=== PATIENT | male | born 1950 | race Caucasian/White ===

== ENCOUNTER 2017-01-31 11:48 | Emergency (ER) | payer OTHER ==
[~2017-01-31] VITALS: Ht 180.3 cm; Wt 100.0 kg
[2017-01-31 11:51] VITALS: BP 165/86; PULSE 75; RESP 18; O2SAT 97
--- NOTE | 2017-01-31 12:03 | ED.REPORT ---
HPI-Extremity Problem Lower Date of Service January 31, 2017 ED Provider: Piero Hyatt DO Pt is a 66 year old male with a hx of high cholesterol, HTN, presenting to the ED complaining of left lower leg pain, swelling and bruising in his calf and left foot. Denies fever, chills, or any other symptoms at this time. He reports that he kicked a metal post 6 days ago and has had pain ever since. Pt has no problems with ambulation. Pt was sent from for an ultrasound. Nursing Notes Stated Complaint: LEFT LEG THROBBING Chief Complaint: Extremity Trauma Nursing Notes Reviewed: Yes Allergies: Coded Allergies: No Known Allergies (Unverified , 05/22/16) Scheduled Atorvastatin (Lipitor) 20 Mg Tablet 20 MG PO DAILY Bupropion ER (Wellbutrin SR) 150 Mg Tablet.er 150 MG PO BID Cilostazol (Cilostazol) 50 Mg Tablet 50 MG PO DAILY Doxycycline Hyclate (Doxycycline Hyclate) 100 Mg Capsule 100 MG PO DAILY Lisinopril / HCTZ 10-12.5 mg (Lisinopril / HCTZ 10-12.5 mg) 1 Each Tablet 1 EACH PO DAILY Metronidazole (Metronidazole Cream) 45 Gm Cream..g. 1 APPLIC TOP BID Omeprazole (Omeprazole) 20 Mg Tablet.dr 20 MG PO DAILY Sulfacetamide Sodium (Sodium Sulfacetamide) 10 % Clnsr.gel 1 TP DAILY General Time Seen by MD: 11:58 Chief Complaint Leg injury left Hx Obtained From: Patient Arrived By: Walk-in Onset Occurred: 6 days ago Symptom Duration: Since onset Caused by: Kicked Location: : Leg left Severity: Current: Moderate Severity: Maximum: Moderate Recent Healthcare: No recent doctor visit, No recent hospitalization Similar Sx Previous: No Past Medical History Past Medical History hx of Hepatitis C Reports: GERD, Hyperlipidemia, Hypertension Past Surgical History Cataract repair Smoking History Never Smoker Social History Alcohol Use: Denies alcohol use Drug Use: THC Ambulatory Status Independent Review of Systems Constitutional: Denies: Chills, Fever Musculoskeletal: Reports: Extremity pain, Extremity swelling Skin: Reports Bruising, Reports Swelling Complete sys rev & neg: except as marked. Physical Exam Initial Vital Signs Vital Signs (First) Date Time Temp Pulse Resp B/P Pulse Ox O2 Delivery O2 Flow Rate FiO2 01/31/17 11:51 35.9 75 18 165/86 97 Room Air Initial VS: Reviewed General/Constitutional: Well-developed, Well-nourished Head / Eyes: Atraumatic, Normocephalic, PERRL ENT: Mucous membranes moist, Conjunctiva normal, No scleral icterus Respiratory: Breath sounds normal, Clear to auscultation, No respiratory distress Cardiovascular: Regular rate & rhythm, Heart sounds normal, Intact distal pulses Abdomen / GI: Soft, Non-tender, No guarding, No rebound, No distention Skin: Warm, Dry, No cyanosis Neurologic: Alert, Oriented, Nonfocal Psychiatric: Mood/affect normal, Behavior normal, Normal thought content Lower Extremity / Pelvis / MS: No deformity, Neurologic intact, Vascular intact Left Leg / Calf: Positive: Swelling present... Left anterior tibial bruise with small 1 cm hematoma. Mild surrounding warmth and erythema 4cm. Ecchymosis left heel. 1+ left LE edema compared to other side. Interpretation & Diagnostics US Soft Tissue/Musculoskeletal US VEINOUS LEG DUPLEX: IMPRESSION: 1. No evidence of deep vein thrombosis involving the left lower extremity. 2. Complex fluid collection in the medial left lower leg in region of a superficial wound suspicious for abscess versus hematoma. Dictated by: Michela Mcgowan MD, PhD on 01/31/2017 at 13:49 Exam Performed by: Radiologist Exam Interpreted by: Radiologist Re-Eval/Medical Decision Med Decision/Clinical Course Clinically this patient has a hematoma around his left lower extremity, not warm to touch and minimally tender he has not had fevers or chills, I do not see an indication for intervention at this point. Additionally there is no evidence of DVT. He will be discharged. Strict return and follow-up precautions are given. Re-Evaluation/Progress : Time of Eval: 13:25 Patient Status: Condition improved Re-Evaluation/Progress Note: Discussed plan for discharge. Pt understands and agrees with plan. Counseled Regarding: Diagnosis, Lab results, Need for follow-up, When/why to return to ED Discharge & Departure Impression: Primary Impression: Contusion of leg, left Encounter type: initial encounter Qualified Code: S80.12XA - Contusion of left lower leg, initial encounter Disposition: Home Discharge Condition All VS Reviewed: Yes Condition: Improved Additional Instructions: There is no evidence of a blood clot. Overall I think that your findings are most consistent with posttraumatic changes and a hematoma. You can apply ice and heat to the area as well as using Tylenol. Follow-up with your regular doctor. Return to the ER to rule out significant pain, high fever, signs of infection such as drainage or more rapid progression of the redness, or any other concerns. Referrals: Elisabeth Patrick MD (PCP) Scribe Attestation Portions of this note were transcribed by Lashawn Dobson. I, Dr. Hyatt personally performed the history, physical exam and medical decision-making; I reviewed and confirmed the accuracy of the information in the transcribed note. Signed by: Reggie Taylor, 01/31/2017 at 1355. copies to: Elisabeth Patrick MD, Timothy Rowena [place] January 31, 2017 12:03 LASHAWN DOBSON January 31, 2017 12:09
[2017-01-31] MEDS ORDERED: BUPR150T8 PO (12:30)
[2017-01-31] MEDS ORDERED: [UNRECOGNIZED DRUG - CODE] TP (12:30)
[2017-01-31] MEDS ORDERED: LISI1TAB7 PO (12:30)
[2017-01-31] MEDS ORDERED: DOXY100C2 PO (12:30)
[2017-01-31] MEDS ORDERED: ATOR20TA PO (12:30)
[2017-01-31] MEDS ORDERED: METR45CR TOP (12:30)
[2017-01-31] MEDS ORDERED: OMEP20TA86 PO (12:30)
[2017-01-31] MEDS ORDERED: CILO50TA PO (12:30)
[2017-01-31 13:46] VITALS: BP 168/73; PULSE 76; RESP 16; O2SAT 98
--- NOTE | 2017-01-31 13:51 | DRSVH ---
PROCEDURE: US VEINOUS LEG DUPLEX UNILATERAL, LEFT INDICATIONS: lle edema TECHNIQUE: Real-time imaging, as well as color and pulse Doppler interrogation, were performed of the lower extr emity deep veins from the inguinal ligament to the popliteal fossa. COMPARISON: None. FINDINGS: The deep veins are normally compressible, and free of intraluminal thrombus. Color and pu lse Doppler demonstrate normal phasic intraluminal flow. There is normal augmentation response to di stal compression maneuver. Complex fluid collections noted in the medial aspect of the left lower leg in the region of a superficial wound suspicious for hematoma or abscess. IMPRESSION: 1. No evidence of deep vein thrombosis involving the left lower extremity. 2. Complex fluid collection in the medial left lower leg in region of a superficial wound suspicious for abscess versus hematoma. Dictated by: Michela Mcgowan MD, PhD on 01/31/2017 at 13:49 Approved by: Michela Mcgowan MD, PhD on 01/31/2017 at 13:50
== END 2017-01-31 13:47 | disposition home or self-care (01) ==
LOC: SED 11:48
DX: S80.12XA Contusion of left lower leg, initial encounter (principal); W22.8XXA Striking against or struck by other objects, initial encounter; Y92.9 Unspecified place or not applicable; Y93.89 Activity, other specified; Y99.8 Other external cause status; E78.5 Hyperlipidemia, unspecified; I10 Essential (primary) hypertension; K21.9 Gastro-esophageal reflux disease without esophagitis; Z86.19 Personal history of other infectious and parasitic diseases

== ENCOUNTER 2017-02-09 10:43 | Emergency (ER) | payer OTHER ==
[~2017-02-09] VITALS: Ht 180.3 cm; Wt 100.0 kg
[~2017-02-09 10:43] MED LIST: ATOR20TA PO; BUPR150T8 PO; CILO50TA PO; DOXY100C2 PO; LISI1TAB7 PO; METR45CR TOP; OMEP20TA86 PO; [UNRECOGNIZED DRUG - CODE] TP
[2017-02-09 11:07] VITALS: BP 139/83; PULSE 86; RESP 16; O2SAT 97
--- NOTE | 2017-02-09 11:35 | ED.REPORT ---
HPI-Rash / Abscess Date of Service February 09, 2017 ED Provider: Timothy Charles PA-C Alex is a 66-year-old male with a history of hepatitis C and leg claudication presents with a chief complaint of left leg swelling. Patient was seen in this department approximately 10 days ago and diagnosed with a contusion. At that time ultrasound revealed no DVT and revealed a hematoma on the left anterior pizarro. Patient reports striking his chin against a metal fence post 2 days prior. Today the patient complains of increased swelling and pain in the left leg and foot as well as drainage from an open sore at the site of the previously diagnosed hematoma. He reports the swelling increased approximately 3 days ago and the sore appeared approximately one day ago. Reports that the pain is worst when he first stands on the affected limb after reclining for a period of time. Denies systemic symptoms such as fever, chills , malaise, palpitations, tachycardia, shortness of breath, sweating, abdominal pain, vomiting. Nursing Notes Stated Complaint: CHECK LEG Chief Complaint: Extremity Trauma Nursing Notes Reviewed: Yes Allergies: Coded Allergies: No Known Allergies (Unverified , 02/09/17) Scheduled Atorvastatin (Lipitor) 20 Mg Tablet 20 MG PO DAILY Bupropion ER (Wellbutrin SR) 150 Mg Tablet.er 150 MG PO BID Cephalexin (Keflex) 500 Mg Capsule 500 MG PO QID Cilostazol (Cilostazol) 50 Mg Tablet 50 MG PO DAILY Doxycycline Hyclate (Doxycycline Hyclate) 100 Mg Capsule 100 MG PO DAILY Lisinopril / HCTZ 10-12.5 mg (Lisinopril / HCTZ 10-12.5 mg) 1 Each Tablet 1 EACH PO DAILY Metronidazole (Metronidazole Cream) 45 Gm Cream..g. 1 APPLIC TOP BID Omeprazole (Omeprazole) 20 Mg Tablet.dr 20 MG PO DAILY Sulfacetamide Sodium (Sodium Sulfacetamide) 10 % Clnsr.gel 1 TP DAILY General Time Seen by MD: 11:12 Chief Complaint Tender/swollen area Past Medical History Past Medical History hx of Hepatitis C Reports: GERD, Hyperlipidemia, Hypertension Past Surgical History Cataract repair Smoking History Never Smoker Social History Alcohol Use: Denies alcohol use Drug Use: THC Ambulatory Status Independent Review of Systems Review of Systems Note: Negative unless stated otherwise in history of present illness Physical Exam General: Well appearing, well developed, well nourished, no acute distress. Head: Atraumatic, normocephalic. Eyes: No scleral icterus or injection. No discharge. Vision grossly intact. ENT: Voice clear, hearing grossly intact. Respiratory: No respiratory distress, no increased work of breathing. Speaks in complete sentences. Skin: Warm and dry. Neurological: Grossly nonfocal. Left leg: Nontender calf, notably larger than right. 1.5 cm shallow sore with slight serous drainage on the medial anterior left pizarro with surrounding erythema and tenderness. 2+ pitting edema in ankle and foot, 1+ pitting edema extending to mid pizarro. Minimal redness, heat. DP and PT pulses are not appreciated by palpation. Psychological: alert and oriented. Speech appropriate, linear and logical. Behavior appropriate. Initial Vital Signs Vital Signs (First) Date Time Temp Pulse Resp B/P Pulse Ox O2 Delivery O2 Flow Rate FiO2 02/09/17 11:07 36.1 86 16 139/83 97 Room Air Initial VS: Vital signs normal Interpretation & Diagnostics Lab Results Interpretation Result Diagram: 02/09/17 1135 Test 02/09/17 11:35 White Blood Count 9.0th/mm3 (3.8-10.1) Red Blood Count 4.32mil/mm3 (4.40-5.80) Hemoglobin 11.3g/dL (13.8-17.2) Hematocrit 36.0% (41.0-50.0) Mean Corpuscular Volume 83.3fL (81-100) Mean Corpuscular Hemoglobin 26.2pg (27.0-35.0) Mean Corpuscular Hemoglobin Concent 31.4% (32.0-37.0) Red Cell Distribution Width 15.2% (12.3-15.4) Platelet Count 265bil/L (150-400) Neutrophils (%) (Auto) 58.4% (40-74) Lymphocytes (%) (Auto) 27.4% (14-46) Monocytes (%) (Auto) 7.2% (4-12) Eosinophils (%) (Auto) 5.9% (0-5) Basophils (%) (Auto) 0.8% (0-3) Procedures Incision & Drainage Abscess Procedure Performed by: Allied health pract Consent / Setup / Site Prep: Informed consent provided, Consent from patient , Hand hygiene observed Location of Abscess: Left anterior pizarro. Skin Preparation Agent: Hibiclens - Chlorhexidine Local Anesthesia: Bupivacaine 0.5% (with epinephrine) Incised Abscess with Scalpel: #11 Pus Drained: Large, Bloody Irrigation: 50 cc Post-Procedure / Complications: Packing placed, Culture obtained, Gram stain ordered, Dressing applied, No complications, Condition improved, Tolerated procedure well, Patient stable Re-Eval/Medical Decision Med Decision/Clinical Course C6-year-old male with a history of hepatitis C and claudication presenting with left leg swelling. Present for approximately 2 weeks after striking his ligaments and status post. The systems department approximately 10 days ago. DVT suspected at that time, hematoma diagnosed by ultrasound. Patient reports increased swelling in the last several days, denies systemic symptoms. On physical examination there is significant edema in the left foot left calf is significantly larger than right. DP and PT pulses are not appreciated possibly due to significant edema but capillary refill remains brisk. Repeat ultrasound again is reassuring against DVT and indicate hematoma still present. CBC reveals a leukocytosis. The patient is afebrile Performed incision and drainage, releasing a significant amount of blood and clots. Irrigated with normal saline, applied packing and dressed with antibiotic ointment and gauze. I discussed this case with Dr. Galeano who met with and examine the patient. We do not feel that antibiotics are necessary at this time swelling as well explained by presence of hematoma. Provided a paper prescription for Keflex to be started if the patient's condition deteriorates. I feel he is competent to make these judgments. I can instructions, advised primary care follow-up as necessary, provided emergency return precautions. His understanding of and consent to plan. Discharge & Departure Impression: Primary Impression: Hematoma of left lower extremity Encounter type: subsequent encounter Qualified Code: S80.12XD - Contusion of left lower leg, subsequent encounter Disposition: Home Discharge Condition All VS Reviewed: Yes Condition: Stable Patient Instructions: Cellulitis (ED) Additional Instructions: Evaluation for left leg swelling in the emergency department whose history, physical, blood work and ultrasound, all of which are reassuring that this is unlikely to be caused by an immediately dangerous condition such as a blood clot in your leg. I believe you are stable and safe to be discharged. Swelling your leg appears to be caused by the hematoma that was diagnosed previously. We have drain this hematoma and You should start to see some improvement in the swelling in the next 2 or 3 days. I will give you a prescription for Keflex to be taken 4 times a day for 10 days. Do not fill this right away. Instead wait until Monday. If the swelling and pain is not improved by then, start taking this medication. The pain is best treated with 400 mg of ibuprofen (Advil, Motrin) every 6 hours , or 1000 mg of acetaminophen (Tylenol) every 6 hours. These drugs can be taken at the same time for more severe pain. Keep the wound covered and dry for the next 24 hours. After that you can remove the dressing, wash with soap and water, reapply antibiotic ointment and dressing. After 2 or 3 days you can remove the packing material. Continue to dress the wound with antibiotic ointment and gauze until it is healed. Be vigilant for signs of infection including increased redness, swelling, pain or the appearance of pus. This is an indication to start taking the Keflex. Follow-up with her primary care provider if you have any concerns about how this is healing. Return to emergency department for new or worsening symptoms including signs of infection, feeling ill, racing heart, sweating, fever. Referrals: Elisabeth Patrick MD (PCP) EDSupervising Provider for APC: Mariah Ashton MD Attending Statement Patient is seen and examined with Mr. Charles. Large hematoma drained from the anterior pizarro present for 2 weeks. Hematoma itself can certainly explain the erythema and edema but present. No white count and no fever not feeling ill. This point I do not think there is evidence for cellulitis and have recommended against antibiotics. However certainly would have a low threshold for starting. Recommended that a prescription for Keflex be sent home with the patient to start if he does develop signs or symptoms of antibiotics. Instructed to return to the emergency room should he have any wound breakdown concerns or increasing infection copies to: Elisabeth Patrick MD, Seth PA-C February 09, 2017 11:35 Mariah Ashton MD February 09, 2017 13:28
[2017-02-09 11:54] LABS: BASOPHILS % (AUTO) 0.8 % (0-3); EOSINOPHILS % (AUTO) 5.9 % (0-5); MONOCYTES % (AUTO) 7.2 % (4-12); Mean Corpuscular Hemoglobin 26.2 pg (27.0-35.0); Mean Corpuscular Volume 83.3 fL (81-100); NEUTROPHILS % (AUTO) 58.4 % (40-74); Platelet Count 265 bil/L (150-400)
[2017-02-09] MEDS ORDERED: CEPH-512 PO (13:17)
--- NOTE | 2017-02-09 13:30 | DRSVH ---
PROCEDURE: US VEINOUS LEG DUPLEX UNILATERAL, LEFT INDICATIONS: unilateral left leg swelling TECHNIQUE: Real-time imaging, as well as color and pulse Doppler interrogation, were performed of the lower extr emity deep veins from the inguinal ligament to the popliteal fossa. COMPARISON: [facility], US, US VENOUS LEG DPLX UNI LT, 01/31/2017, 12:53. FINDINGS: The deep veins are normally compressible, and free of intraluminal thrombus. Color and pu lse Doppler demonstrate normal phasic intraluminal flow. There is normal augmentation response to di stal compression maneuver. Complex fluid collections noted in the medial aspect of the left lower leg in the region of a superficial wound suspicious for hematoma or abscess. IMPRESSION: 1. No deep venous thrombosis identified within the left lower extremity. 2. Complex fluid collection redemonstrated within the medial left lower leg similar to prior exam. R ecommend clinical correlation and followup. Dictated by: Maurice KWOK Interpreted: Henry White MD on 02/09/2017 at 13:28 Transcribed by: LAUREN on 02/09/2017 at 13:30 Approved by: Ken White M.D. on 02/09/2017 at 13:46
== END 2017-02-09 13:29 | disposition home or self-care (01) ==
LOC: SED 10:43
DX: S80.12XA Contusion of left lower leg, initial encounter (principal); W22.8XXA Striking against or struck by other objects, initial encounter; Y93.89 Activity, other specified; Y92.9 Unspecified place or not applicable; Y99.8 Other external cause status; K21.9 Gastro-esophageal reflux disease without esophagitis; E78.5 Hyperlipidemia, unspecified; I10 Essential (primary) hypertension

== ENCOUNTER 2017-05-12 13:26 | Emergency (ER) | payer OTHER ==
[~2017-05-12] VITALS: Ht 180.3 cm; Wt 99.1 kg
[~2017-05-12 13:26] MED LIST changes: +CEPH-512 PO
[2017-05-12 13:32] VITALS: BP 143/91; PULSE 85; RESP 14; O2SAT 98
--- NOTE | 2017-05-12 14:22 | ED.REPORT ---
HPI-Extremity Problem Upper Date of Service May 12, 2017 ED Provider: Doc,Ed MD History of Present Illness: Fall on steps at home, landing on right hand, cut on themar eminance. Happened around 1230 today. primary care is jocelyn at [facility]. up to date on tdap. right hand dominant. retired. 12/09 Nursing Notes Stated Complaint: CUT ON RT HAND Chief Complaint: Extremity Trauma Nursing Notes Reviewed: Yes Allergies: Coded Allergies: No Known Allergies (Unverified , 02/09/17) Scheduled Atorvastatin (Lipitor) 20 Mg Tablet 20 MG PO DAILY Bupropion ER (Wellbutrin SR) 150 Mg Tablet.er 150 MG PO BID Cephalexin (Keflex) 500 Mg Capsule 500 MG PO QID Cilostazol (Cilostazol) 50 Mg Tablet 50 MG PO DAILY Doxycycline Hyclate (Doxycycline Hyclate) 100 Mg Capsule 100 MG PO DAILY Lisinopril / HCTZ 10-12.5 mg (Lisinopril / HCTZ 10-12.5 mg) 1 Each Tablet 1 EACH PO DAILY Metronidazole (Metronidazole Cream) 45 Gm Cream..g. 1 APPLIC TOP BID Omeprazole (Omeprazole) 20 Mg Tablet.dr 20 MG PO DAILY Sulfacetamide Sodium (Sodium Sulfacetamide) 10 % Clnsr.gel 1 TP DAILY General Time Seen by MD: 14:21 Chief Complaint Hand injury right, Other (right hand laceration) Hx Obtained From: Patient Onset Occurred: Just prior to arrival Past Medical History Past Medical History hx of Hepatitis C Reports: GERD, Hyperlipidemia, Hypertension, Denies: Asthma Past Surgical History Cataract repair both eyes Smoking History Former Smoker (quit 10 years ago 05/12/2017) Social History Alcohol Use: Denies alcohol use Drug Use: THC Occupation single, live alone with 2 dogs Ambulatory Status Independent Review of Systems Basic Review of Systems Eyes: Vision NL, No discharge : No dysuria, No frequency Psychiatric: Normal thought content Physical Exam Initial Vital Signs Vital Signs (First) Date Time Temp Pulse Resp B/P Pulse Ox O2 Delivery O2 Flow Rate FiO2 05/12/17 13:32 36.6 85 14 143/91 98 Room Air Initial VS: Reviewed, Vital signs normal General/Constitutional: Well-developed, Well-nourished Head / Eyes: Atraumatic, Normocephalic, PERRL ENT: Mucous membranes moist, Conjunctiva normal, No scleral icterus Neck: Supple, Non-tender, Full range of motion Respiratory: Breath sounds normal, Clear to auscultation, No respiratory distress Cardiovascular: Regular rate & rhythm, Heart sounds normal, Intact distal pulses Abdomen / GI: Soft, Non-tender, No guarding, No rebound, No distention Back: No CVA tenderness Lymphatic: No lymphadenopathy Lower Extremities: Vascular intact, Neuro intact, No swelling, No tenderness Skin: Warm, Dry, No cyanosis Neurologic: Alert, Oriented, Nonfocal Psychiatric: Mood/affect normal, Behavior normal, Normal thought content General/Constitutional: Awake, Alert, No acute distress, Well appearing, Well developed, Well hydrated, Well nourished, Cooperative Respiratory / Chest: Atraumatic, Breath sounds NL, Breath sounds = bilat, No respiratory distress, No rales, No rhonchi, No wheezing, No retractions, No stridor, No chest tenderness, No chest wall deformity, No crepitus Cardiovascular: Heart rate NL, Regular rhythm, Heart sounds NL, No gallop, No murmurs Upper Extremity / MS: Full range of motion, No swelling right arm has area of ecchymosis above elbow. No skin damage. Full range of motion of elow and hand and wrist right hand has 2 cm laceration in themar eminance. no active bleeding Head / Eyes: Atraumatic, Normocephalic, PERRL, EOMI ENT: Atraumatic, Airway patent, Mucous membranes moist, Pharynx NL Procedures Laceration Management Time: 14:30 Procedure Performed by: Allied health pract Consent / Setup / Site Prep: Informed consent provided, Consent from patient , Hand hygiene observed, Stand sterile technique Location of Wound: right themar eminance Wound Length: 2 cm Local Anesthesia: Lidocaine 1%, 4cc, 27g needle Digital Block: No Wound Preparation: Normal saline Irrigation: Copious Repair Skin: ___ O (5.), Nylon # Sutures - Skin: 7 Closure Layers: 1 Suture Technique: Simple Post-Procedure / Complications: Antibiotic oint applied, Dressing applied, No complications, Condition improved, Tolerated procedure well, Patient stable Re-Eval/Medical Decision Med Decision/Clinical Course 66 year old male presents for evualation and repair of hand laceration when he fell at home earlier today. Patient with full range of motion, no active bleeding. sensation intact distally cap refill less than 2 sec. No sign of compartment syndrome of hand fracture Discharge & Departure Impression: Primary Impression: Laceration Disposition: Home Patient Instructions: Contusion in Adults (ED), Laceration (ED) Additional Instructions: The laceration has been repaired with 7 sutures. You have a contusion by your elbow. Need to use ice to the site 15 minutes on and 15 minutes off for 4 to 5 days. Keep the dressing dry. Sutures out in 14 days here. Apply bacitracin to the hand wound daily. Make sure you are moving the arm and elbow also. Follow with Dr. Patrick as scheduled. Referrals: Elisabeth Patrick MD (PCP) EDSupervising Provider for APC: Luca Moser MD Attending Statement I saw the patient with the [facility]. I agree with the plan and findings as documented above. 66-year-old male with a laceration to the palmar aspect of his hand as above. No neurovascular compromise. Laceration repaired as per above. Neurovascularly intact postprocedure. copies to: Elisabeth Patrick MD, Sue [facility] May 12, 2017 14:22 Lcua Moser MD May 12, 2017 15:24
[2017-05-12 15:52] VITALS: BP 133/70; PULSE 74; RESP 16; O2SAT 97
== END 2017-05-12 15:23 | disposition home or self-care (01) ==
LOC: SED 13:26
DX: S61.411A Laceration without foreign body of right hand, initial encounter (principal); W10.8XXA Fall (on) (from) other stairs and steps, initial encounter; Y93.89 Activity, other specified; Y92.018 Other place in single-family (private) house as the place of occurrence of the external cause; Y99.8 Other external cause status; K21.9 Gastro-esophageal reflux disease without esophagitis; E78.5 Hyperlipidemia, unspecified; I10 Essential (primary) hypertension; Z87.891 Personal history of nicotine dependence